=== PATIENT | male | born 1955 | race Caucasian/White ===

== ENCOUNTER 2023-09-14 11:20 | Emergency (ER) | payer MEDICARE, SELFPAY ==
[2023-09-14] VITALS (31 sets, daily range): BP systolic 49–174; BP diastolic 25–68; PULSE 48–84; RESP 18–21; TEMP 30.1–34.6; O2SAT 79–100; BMI 25.1
--- NOTE | 2023-09-14 | ECG_ITS ---
Test Reason : CARDIAC ARREST REPEAT Blood Pressure : / mmHG Vent. Rate : 067 BPM Atrial Rate : 067 BPM P-R Int : 192 ms QRS Dur : 102 ms QT Int : 478 ms P-R-T Axes : 066 044 082 degrees QTc Int : 505 ms Sinus rhythm with Premature atrial complexes Possible Left atrial enlargement Prolonged QT Abnormal ECG When compared with ECG of 14-SEP-2023 11:29, Poor data quality in previous ECG Referred By: Anjum Castillo Electronically Signed By:Arian Triana
--- NOTE | ~2023-09-14 | CT_ITS ---
EXAMINATION: CT CHEST, ABDOMEN AND PELVIS WITHOUT CONTRAST CLINICAL INFORMATION: Cardiac arrest. COMPARISON: None available. TECHNIQUE: Multidetector volumetric imaging was performed of the chest, abdomen and pelvis without intravenous contrast. Sagittal and coronal reformatted images were obtained on the technologist's workstation. This CT examination was performed using dose optimization techniques as appropriate, variously including the following: *Automated exposure control *Adjustment of mA and/or kV according to patient size (this includes techniques or standardized protocols for targeted exams where dose is matched to indication/reason for exam; i.e. extremities or head) *Use of iterative reconstruction technique DLP: 1684.37 mGy-cm FINDINGS: CHEST: LUNGS: Endotracheal tube tip terminates 5 cm above the vince. There is compressive atelectasis in the lower lobes. There is focal consolidation in the anteromedial/paramediastinal right upper lobe possibly representing a contusion. PLEURA: Moderate bilateral pleural effusions. No pneumothorax. MEDIASTINUM: Imaged thyroid gland is heterogeneous. No bulky mediastinal or hilar lymphadenopathy. Great vessels are of normal caliber. Heart is enlarged. No pericardial effusion. CORONARY ARTERY CALCIFICATION: Marked. CHEST WALL/AXILLA: No axillary or internal mammary lymphadenopathy. Gynecomastia. ABDOMEN AND PELVIS: ABDOMINAL AND PELVIC WALL: Unremarkable. LIVER AND BILIARY TREE: Unremarkable. GALLBLADDER: Distended. PANCREAS: No ductal dilatation. SPLEEN: Not enlarged. ADRENAL GLANDS: No adrenal mass. KIDNEYS AND URETERS: 6 mm midpole nonobstructing right renal calculus. No right hydrocele necrosis or hydroureter. Nonspecific right perinephric stranding. There is mild to moderate left hydroureteronephrosis to the level of the urinary bladder. No obstructing calculus is seen. Nonspecific left perinephric stranding. GASTROINTESTINAL TRACT: Enteric catheter terminates in the stomach. Copious stool throughout the colon. Appendix is within normal limits. No small bowel obstruction. VASCULAR: Marked atherosclerotic vascular calcification of the abdominal aorta and major branch vessels. LYMPH NODES: Nonspecific subcentimeter retroperitoneal and mesenteric lymph nodes. FREE FLUID: No free fluid. BLADDER: Decompressed by indwelling Edouard catheter. Perivesicular stranding. PELVIC VISCERA: Unremarkable. OSSEOUS STRUCTURES: Right first through fifth rib fractures. No destructive bone lesion. CT/CT abdomen pelvis wo IV con IMPRESSION: Right first through fifth rib fractures. Probable pulmonary contusion in the anteromedial/paramediastinal right upper lobe. Moderate bilateral pleural effusions with compressive atelectasis. Mild to moderate left hydroureteronephrosis to the level of the urinary bladder. No obstructing calculus is seen. Evaluation is limited without intravenous contrast. Consider CT urogram. Gallbladder hydrops. Advise correlation with right upper quadrant ultrasound.
--- NOTE | ~2023-09-14 | CT_ITS ---
EXAMINATION: CT HEAD WITHOUT CONTRAST CT CERVICAL SPINE WITHOUT CONTRAST CLINICAL INFORMATION: Cardiac arrest. Fall. Found down. COMPARISON: None. TECHNIQUE: Contiguous axial imaging was performed from the skullbase to vertex without intravenous administration of contrast. Multidetector helical imaging was performed through the cervical spine. This CT examination was performed using dose optimization techniques as appropriate, variously including the following: *Automated exposure control *Adjustment of mA and/or kV according to patient size (this includes techniques or standardized protocols for targeted exams where dose is matched to indication/reason for exam; i.e. extremities or head) *Use of iterative reconstruction technique DLP: 1330 mGy-cm. FINDINGS: HEAD: There is diffusely diminished santiago-white matter differentiation both cerebral hemispheres. Moderate generalized brain parenchymal volume loss noted with commensurate ex vacuo dilatation of the ventricles. Mild chronic white matter microangiopathy also noted. There is no evidence of acute intracranial hemorrhage. No abnormal mass effect or midline shift is seen. No extra-axial fluid collections are identified. The osseous structures and soft tissues are normal. The mastoid air cells are well aerated. Mild ethmoid sinus mucosal thickening noted. CERVICAL SPINE: Partially visualized fractures are seen in the first ribs bilaterally. There is moderate to severe degenerative disc disease with disc-osteophyte complexes at the C6-C7 and C7-T1 levels. Central disc protrusion mildly impresses upon the ventral thecal sac at the C5-C6 level. Heterogeneous attenuation of the thyroid gland noted without a discrete dominant lesion. The atlantoaxial articulation is normally maintained. The patient is intubated. [id number] atherosclerotic wall calcifications present at the carotid vasculature, worse on the left side with stenosis at the origin of the left internal carotid artery. The paraspinal soft tissues are normal. The lung apices are clear. CT/CT cervical spine wo IV con IMPRESSION: 1. Diffuse decreased brain parenchymal attenuation and loss of santiago-white matter differentiation, most indicative for global anoxic brain injury. 2. No evidence of acute cervical spine traumatic injury. Multilevel spondylosis, more significant at the C6-C7 and C7-T1 levels. 3. Bilateral first rib fractures. Imaging findings reported to Dr. Silva at 2:18 PM on 09/14/2023.
--- NOTE | 2023-09-14 11:38 | ECG_ITS ---
Test Reason : CARDIAC ARREST Blood Pressure : / mmHG Vent. Rate : 085 BPM Atrial Rate : 085 BPM P-R Int : 186 ms QRS Dur : 112 ms QT Int : 394 ms P-R-T Axes : 048 -41 055 degrees QTc Int : 468 ms Poor data quality Artifact Sinus rhythm No previous ECGs available Referred By: Cherie Silva Electronically Signed By:Arian Triana
--- NOTE | 2023-09-14 11:45 | ED.CPR ---
HPI - CPR General Chief Complaint: Cardiac Arrest/CPR Stated Complaint: CARDIAC ARREST PER EMS Source: EMS Mode of arrival: EMS Limitations: other (ongoing CPR) History of Present Illness HPI narrative: 68 yo male with PMH of HTN, aspiration pneumonia, DM BS in 100s with EMS, HLD, PVD s/p R TMA, he is on eliquis as well I am not sure why. Has new CKD from vancomycin and went on a new antibiotic Thursday. Sister notes she brought him home from [facility] in the afternoon and his urine was the color of tea. A thud was heard this AM and he was found by per EMS. He had about 10 minutes of downtime prior to prehospital CPR which was started by PD. ACLS transport arrived 15 min after collapse they report asystole on arrival and then PEA. He had 1 minute of ROSC but lost it. He had a amalia airway and 5+ epi. He had about 45+ min prehospital CPR sister called he has MRSA in R foot - Norberto [phone] his was rushed to [facility] because she is ill and the family did not know where he was MD complaint: collapsed during rest (was standing) Onset (ago): hour(s) (55+) Timing confirmed by: family member Place: home Bystander CPR performed: No AED applied by bystander/acreage reporter: Yes Shock advised: No Downtime before ACLS arrival (mins): 15 Initial findings in the field: unresponsive, no respirations, no pulse and other rhythm (asystole) ROSC in the field: Yes (1 min) Associated injuries: No Known history of: other (DM) Treatments prior to arrival: other airway device and epinephrine mgs # (5+) Related Data Allergies Allergy/AdvReac Type Severity Reaction Status Date / Time No Known Allergies Allergy Verified 09/14/23 11:38 Review of Systems Review of Systems: ROS unable to be obtained due to ongoing CPR [facility] Past Medical History Source: old records reviewed Medical History MRSA (methicillin resistant staph aureus) culture positive Diabetes HTN (hypertension) Social History Social History (Updated 09/14/23 @ 12:13 by Cherie Silva DO) Patient Tobacco Use Status: Tobacco use Unknown Advance Directives: No Physical Exam Vital Signs: Vital Signs: Last Vital Signs Temp 93.2 F L 09/14/23 15:11 Pulse 73 09/14/23 15:25 Resp 18 09/14/23 15:25 BP 123/58 L 09/14/23 15:25 Pulse Ox 100 09/14/23 15:25 O2 Del Method Mechanical Ventil ation 09/14/23 15:25 FiO2 100 09/14/23 15:25 BMI result Body Mass Index 25.1 Appearance: ongoing CPR, unresponsive, no response to any painful stimuli Eyes: Pupils unequal and not reactive R pupil 4mm irregular L pupil 3mm ENT: Pharynx normal. no vomit in airway Neck: Normal inspection. Neck supple. CVS: no pulses present on arrival - ongoing CPR with onel device Respiratory: no spontaneous respirations, diminished BS in both bases. Abdomen: Soft but distended Skin: Skin cold to touch. pale skin color. Extremities: R foot TMA incision is c/d/i no pulses felt in either foot with CPR, no signs of infection Neuro: no response to any stimuli at this time Course Course Course Narrative: cannot get a hold of no answer per [facility] Department Reevaluation(s) Reevaluation #1: still no neurologic signs at this time. Reevaluation #2: notes from [facility] admit to 09/12 on eliquis for afib has DM2, PAF, severe PAD s/p bilateral LE angio, left TMA 08/24, R TMA recent MRSA bacteremia was on 6 weeks course of vancomycin s/p discharge on 08/28 but presented on for elevated vanc and abnormal labs. Cr 2.1 baseline 0.9 to 1.0. They switched him to daptomycin. He was confused on arrival to the ED with urinary retention and straight cathed for 900cc urine. had normal retroperitoneal US no stones but mild hydro hemoglobin on DC 7.7, Cr 1.8 UA had > 182 WBC and moderate bacteria slight WBC clumps Reevaluation #3: pupils not reactive, no corneal reflex, not breathing over the vent, no response to pain now here will discuss findings and updates repeat lactic and VBG ordered 155pm long discussion with who states that she is so sad but is aware he was without O2 for 15 minutes and now she also notes there was no thud she just found him down. so the downtime is not known. She is aware he had an anoxic brain injury on CT scan. She states he is to be DNR at this time. She wants him to have his last rites. 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 Will wait for his sister and terminally extubate. sister aware and plan of care is to terminally extubate and is in agreement extubated 409pm no cough, no gag no respirations noted after removal of the vent Medications Administered Discontinued Medications Generic Name Dose Route Start Last Admin Trade Name Freq PRN Reason Stop Dose Admin Norepinephrine Bitartrate 8 mg in 250 mls @ 0 mls/hr 09/14/23 12:00 09/14/23 15:25 Levophed IV 0.1 mcg/kg/min .Q0M YE 16.16 mls/hr Titration Protocol Per Protocol Sodium Chloride 2,586 mls @ 2,586 mls/hr 09/14/23 11:53 09/14/23 13:13 Ns 30 ml/kg infuse over 1 hr (2586 ml) 09/14/23 12:52 Infused IV Infusion .Q1H STA Cefepime HCl 2 gm/ Sodium 50 mls @ 100 mls/hr 09/14/23 11:56 09/14/23 12:55 Chloride IV 09/14/23 12:25 Infused ONCE ONE Infusion Sodium Bicarbonate 100 meq/ 1,000 mls @ 50 mls/hr 09/14/23 12:15 09/14/23 15:12 Dextrose IV Infused .Q20H YE Infusion Medical Decision Making Medical Decision Making MDM Narrative: 68 yo male with PMH of HTN, aspiration pneumonia, DM BS in 100s with EMS, HLD, PVD s/p R TMA, he is on eliquis as well recent RICHARD currently on IV abx from R PICC line at this time he had ROSC on arrival here after about 55 minutes of prehospital CPR now with unequal pulses and no neurologic response. He has had ROSC here at this time will start temp directed care, empiric abx, request records from [facility] as he was just discharged from there yesterday. Given hypotension and acidosis I have started fluids along with cefepime until we get records from [facility], HCO3 drip as levo is not working, huff CT scan as well. Sister notes worsening kidney function so CTA PE held and he is on eliquis VTE unlikely no signs of unilateral swelling CT head ordered for possible ICH though he has been in arrest for 55 minutes at this time Differential Diagnosis Differential Diagnoses: The differential diagnosis associated with the presentation includes cardiac arrest, VTE unlikely given eliquis use, infection, lyte abnormality Admission/Observation Consideration of admission/observation: Escalation of care including admission/observation considered patient made SENIOR QUALITY CONTROL TECHNICIAN and extubated terminally in light of anoxic brain injury and lack of neurologic response at 4.5 hours with severe findings on CT scan and no pupillary response, corneal reflex, he is not breathing over the vent, family wished to make him SENIOR QUALITY CONTROL TECHNICIAN Lab Data MDM Lab Attestation statement: I reviewed the patient's lab results. 09/14/23 11:48 09/14/23 11:48 Labs: Lab Results 09/14/23 09/14/23 09/14/23 Range/Units 11:32 11:48 11:54 WBC 8.5 (4.8-10.8) X10*3/uL RBC 2.97 L (4.60-5.80) X10*6/uL Hgb 8.1 L (14.0-18.0) g/dl Hct 27.5 L (42.0-52.0) % MCV 92.6 (80.0-98.0) fL MCH 27.3 (27.0-33.0) pg MCHC 29.5 L (31.0-36.0) g/dl RDW 15.4 (11.0-16.0) % Plt Count 317 (160-400) X10*3/uL MPV 11.2 (9.4-12.4) fL Immature Gran % (Auto) 4.7 H (0.0-0.4) % Neut % (Auto) 53.5 (45-73) % Lymph % (Auto) 28.8 (20-40) % [place] % (Auto) 6.8 (2-11) % Eos % (Auto) 5.6 H (0-4) % Baso % (Auto) 0.6 (0-2) % Lymph # (Auto) 2.5 (1.2-4.9) X10*3/uL [place] # (Auto) 0.6 (0.1-1.2) X10*3/uL Eos # (Auto) 0.5 H (0.0-0.4) X10*3/uL Baso # (Auto) 0.1 (0.0-0.2) X10*3/uL Abs Immat Gran (auto) 0.40 H (0.00-0.03) X10*3/uL Absolute Neuts (auto) 4.6 (2.0-8.3) x10*3/uL Absolute Nucleated RBC 0.000 (0.0-0.012) X10*3/uL Nucleated RBC % (auto) 0.0 (0.0-0.2) /100WBC PT 21.3 H (11.1-13.3) SEC INR 1.8 H (0.9-1.1) VBG pH (7.32-7.43) VBG pCO2 mmHg VBG pO2 mmHg VBG HCO3 (22-26) mmol/L VBG O2 Saturation VBG Base Excess mmol/L Sodium 144 (135-145) mmol/L Potassium 5.1 (3.3-5.1) mmol/L Chloride 110 H (96-108) mmol/L Carbon Dioxide 16 L (22-29) mmol/L Anion Gap 23 H (12-20) BUN 34 H (9-16) mg/dL Creatinine 2.63 H (0.5-1.4) mg/dL Estim Creat Clear Calc TNP Estimated GFR 24 POC Glucose 103 (60-115) mg/dL Random Glucose 86 (60-115) mg/dL Lactic Acid 12.4 H* (0.5-2.0) mmol/L Lactic Acid F/U @ 2Hr (0.5-2.0) mmol/L Calcium 9.1 (8.4-10.2) mg/dL Magnesium 2.9 H (1.6-2.6) mg/dL Total Bilirubin 0.3 (0.0-1.0) mg/dL Direct Bilirubin 0.2 (0.0-0.5) mg/dL AST 2073 H (5-37) U/L ALT 965 H (0-40) U/L Alkaline Phosphatase 65 (39-117) U/L Ammonia 199 H (13-55) umol/L Total Creatine Kinase 135 (38-174) U/L Troponin I High Sens 11.9 (<3.5-35.0) ng/L B-Natriuretic Peptide 236 H (<100) pg/mL Total Protein 7.0 (6.5-8.0) g/dL Albumin 3.3 L (3.5-5.0) g/dL Lipase 19 (8-78) U/L Procalcitonin 0.08 ng/mL Urine Color Dark Yellow Urine Appearance Turbid Urine pH 6.0 (5.0-9.0) Ur Specific [place] 1.015 (1.005-1.025) Urine Protein 300 (3+) H (Neg-Trace) mg/dL Urine Glucose (UA) Negative (Negative) mg/dL Urine Ketones Negative (Negative) mg/dL Urine Blood Large (3+) H (Negative) Urine Nitrite Negative (Negative) Ur Leukocyte Esterase Large (3+) H (Negative) Urine RBC 6-10 H (0-2) /HPF Urine WBC >50 H (0-5) /HPF Ur Squamous Epith Cells 6-10 (0-2) /HPF Urine Bacteria Trace (None Seen) Hyaline Casts 3-5 (0-2) /LPF Urine Yeast Present Urine Opiates Screen POSITIVE H (Not Detect) Urine Fentanyl Screen Not Detected (Not Detect) Ur Barbiturates Screen Not Detected (Not Detect) Ur Phencyclidine Scrn Not Detected (Not Detect) Ur Amphetamines Screen Not Detected (Not Detect) U Benzodiazepines Scrn Not Detected (Not Detect) Urine Cocaine Screen Not Detected (Not Detect) U Marijuana (THC) Screen Not Detected (Not Detect) Ethyl Alcohol < 10 mg/dL Influenza Type A (PCR) NEGATIVE (Negative) Influenza Type B (PCR) NEGATIVE (Negative) RSV RNA Qual (PCR) NEGATIVE (Negative) SARS-CoV-2 RNA (RT-PCR) NEGATIVE (Negative) Blood Type B Positive Antibody Screen NEGATIVE 09/14/23 09/14/23 09/14/23 Range/Units 11:55 14:00 14:05 WBC (4.8-10.8) X10*3/uL RBC (4.60-5.80) X10*6/uL Hgb (14.0-18.0) g/dl Hct (42.0-52.0) % MCV (80.0-98.0) fL MCH (27.0-33.0) pg MCHC (31.0-36.0) g/dl RDW (11.0-16.0) % Plt Count (160-400) X10*3/uL MPV (9.4-12.4) fL Immature Gran % (Auto) (0.0-0.4) % Neut % (Auto) (45-73) % Lymph % (Auto) (20-40) % [place] % (Auto) (2-11) % Eos % (Auto) (0-4) % Baso % (Auto) (0-2) % Lymph # (Auto) (1.2-4.9) X10*3/uL [place] # (Auto) (0.1-1.2) X10*3/uL Eos # (Auto) (0.0-0.4) X10*3/uL Baso # (Auto) (0.0-0.2) X10*3/uL Abs Immat Gran (auto) (0.00-0.03) X10*3/uL Absolute Neuts (auto) (2.0-8.3) x10*3/uL Absolute Nucleated RBC (0.0-0.012) X10*3/uL Nucleated RBC % (auto) (0.0-0.2) /100WBC PT (11.1-13.3) SEC INR (0.9-1.1) VBG pH 6.99 L* 7.29 L (7.32-7.43) VBG pCO2 57 31 mmHg VBG pO2 102 204 mmHg VBG HCO3 14 L 15 L (22-26) mmol/L VBG O2 Saturation TNP 100.0 VBG Base Excess -16.6 -9.7 mmol/L Sodium (135-145) mmol/L Potassium (3.3-5.1) mmol/L Chloride (96-108) mmol/L Carbon Dioxide (22-29) mmol/L Anion Gap (12-20) BUN (9-16) mg/dL Creatinine (0.5-1.4) mg/dL Estim Creat Clear Calc Estimated GFR POC Glucose (60-115) mg/dL Random Glucose (60-115) mg/dL Lactic Acid (0.5-2.0) mmol/L Lactic Acid F/U @ 2Hr 6.4 H* (0.5-2.0) mmol/L Calcium (8.4-10.2) mg/dL Magnesium (1.6-2.6) mg/dL Total Bilirubin (0.0-1.0) mg/dL Direct Bilirubin (0.0-0.5) mg/dL AST (5-37) U/L ALT (0-40) U/L Alkaline Phosphatase (39-117) U/L Ammonia (13-55) umol/L Total Creatine Kinase (38-174) U/L Troponin I High Sens (<3.5-35.0) ng/L B-Natriuretic Peptide (<100) pg/mL Total Protein (6.5-8.0) g/dL Albumin (3.5-5.0) g/dL Lipase (8-78) U/L Procalcitonin ng/mL Urine Color Urine Appearance Urine pH (5.0-9.0) Ur Specific [place] (1.005-1.025) Urine Protein (Neg-Trace) mg/dL Urine Glucose (UA) (Negative) mg/dL Urine Ketones (Negative) mg/dL Urine Blood (Negative) Urine Nitrite (Negative) Ur Leukocyte Esterase (Negative) Urine RBC (0-2) /HPF Urine WBC (0-5) /HPF Ur Squamous Epith Cells (0-2) /HPF Urine Bacteria (None Seen) Hyaline Casts (0-2) /LPF Urine Yeast Urine Opiates Screen (Not Detect) Urine Fentanyl Screen (Not Detect) Ur Barbiturates Screen (Not Detect) Ur Phencyclidine Scrn (Not Detect) Ur Amphetamines Screen (Not Detect) U Benzodiazepines Scrn (Not Detect) Urine Cocaine Screen (Not Detect) U Marijuana (THC) Screen (Not Detect) Ethyl Alcohol mg/dL Influenza Type A (PCR) (Negative) Influenza Type B (PCR) (Negative) RSV RNA Qual (PCR) (Negative) SARS-CoV-2 RNA (RT-PCR) (Negative) Blood Type Antibody Screen Independent Interpretation I performed an independent interpretation of an: EKG and CT Scan (global anoxic brain injury) Interpretation: Rate: 67 Rhythm: NSR with PACs [place]: normal Normal P waves. Normal JAN. Normal QRS complex. ST T wave : no DAMON, inverted t wave aVL and V1 qTC: 505 prior studies: no priors The study has been interpreted contemporaneously by me. . Radiology Impression Discussion of test interpretation with radiology: I discussed test interpretation with the radiologist and I have reviewed the radiologist's reading. Independent Historian Clinical information obtained from an independent historian. History obtained from or confirmed by: EMS and Other (sister) External Record Review External record reviewed: Outpatient record Procedures FAST Exam FAST Exam 1: Fluid in Morison's pouch: No Fluid in Splenorenal [place]unction: No Fluid around bladder, Transverse view: No Fluid around bladder, Sagittal view: No Fluid in Pericardial Sac: No Study normal for this patient: Yes Intubation Intubation Type:: Endotracheal Tube Insertion Time out performed: Yes sedative: none Laryngoscope: fiber optic video scope ET Tube Size: 7.5 ET Tube Uncuffed: Yes Tube Secured Depth (cm): 23 Tube Secured Location: teeth Tube Placement Confirmation: visualized tube passing through cords, equal breath sounds bilaterally, no breath sounds over epigastrium and confirmation by capnometry Patient Tolerated Procedure: well and no complications Intubation Complications: none Critical Care Time Critical Care Time Critical Care Time: Yes Total Critical Care Time: 90 Attestation: review of records, family discussion, end of life care, resuscitation I attest to this time spent taking care of the patient Discharge Plan Discharge Clinical Impression: Cardiac arrest, Metabolic acidosis, Acute kidney injury superimposed on chronic kidney disease, Elevated liver function tests, Anoxic brain injury Patient Disposition: Still a Patient
[2023-09-14 11:53] LABS: MANUAL DIFF FLAG NO
[2023-09-14 11:55] LABS: Venous Blood Gas Refer to POC result
[2023-09-14] MEDS: Norepinephrine Bitartrate/D5W 8 MG/250 ML PLAST..BAG 8.08 MG IV (11:59)
[2023-09-14] MEDS: 0.9 % Sodium Chloride 2,586 ML 2586 ML IV (12:03)
[2023-09-14 12:04] LABS: VBG Base Excess -16.6 mmol/L; VBG HCO3 14 mmol/L (22-26); VBG pCO2 57 mmHg; VBG pH 6.99 (7.32-7.43); VBG pO2 102 mmHg
[2023-09-14 12:04] LABS: INTERNATIONAL NORM RATIO 1.8 (0.9-1.1); Prothrombin Time 21.3 SEC (11.1-13.3)
[2023-09-14 12:05] LABS: Basophils Absolute Auto 0.1 X10*3/uL (0.0-0.2); Basophils Percent Auto 0.6 % (0-2); Eosinophils Absolute Auto 0.5 X10*3/uL (0.0-0.4); Eosinophils Percent Auto 5.6 % (0-4); Hematocrit 27.5 % (42.0-52.0); Hemoglobin 8.1 g/dl (14.0-18.0); Imm Gran Pct Auto 4.7 % (0.0-0.4); Lymphocytes Absolute Auto 2.5 X10*3/uL (1.2-4.9); Lymphocytes Percent Auto 28.8 % (20-40); Mean Corpuscular HGB Conc 29.5 g/dl (31.0-36.0); Mean Corpuscular Hemoglobin 27.3 pg (27.0-33.0); Mean Corpuscular Volume 92.6 fL (80.0-98.0); Mean Platelet Volume 11.2 fL (9.4-12.4); Monocytes Absolute Auto 0.6 X10*3/uL (0.1-1.2); Monocytes Percent Auto 6.8 % (2-11); Neutrophils Absolute Auto 4.6 x10*3/uL (2.0-8.3); Neutrophils Percent Auto 53.5 % (45-73); Platelet Count 317 X10*3/uL (160-400); Red Blood Count 2.97 X10*6/uL (4.60-5.80); Red Cell Distribution Width 15.4 % (11.0-16.0); White Blood Count 8.5 X10*3/uL (4.8-10.8)
[2023-09-14 12:06] LABS: Glucose, Whole Blood 103 mg/dL (60-115)
[2023-09-14 12:07] LABS: Ammonia 199 umol/L (13-55)
[2023-09-14 12:15] LABS: Lactic Acid 12.4 mmol/L (0.5-2.0)
[2023-09-14 12:18] LABS: Amphetamine Screen Urine Not Detected (Not Detect); Barbiturates, Urine Not Detected (Not Detect); Benzodiazepines Screen Urine Not Detected (Not Detect); Cannabinoid Screen Urine Not Detected (Not Detect); Cocaine Screen Urine Not Detected (Not Detect); Fentanyl, urine Not Detected (Not Detect); Opiate Screen Urine POSITIVE (Not Detect); Phencyclidine Screen Urine Not Detected (Not Detect)
[2023-09-14 12:21] LABS: B Type Natriuretic Peptide 236 pg/mL (<100)
[2023-09-14 12:23] LABS: Troponin-I High Sensitivity 11.9 ng/L (<3.5-35.0)
[2023-09-14] MEDS: cefEPime HCl 2 GM in 0.9 % Sodium Chloride 50 ML IV (12:25)
[2023-09-14 12:27] LABS: Albumin Level 3.3 g/dL (3.5-5.0); Anion Gap 23 (12-20); Bilirubin Direct 0.2 mg/dL (0.0-0.5); Bilirubin Total 0.3 mg/dL (0.0-1.0); Blood Urea Nitrogen 34 mg/dL (9-16); Calcium 9.1 mg/dL (8.4-10.2); Carbon Dioxide 16 mmol/L (22-29); Chloride 110 mmol/L (96-108); Estimated Glomerular Filt Rate 24; Ethanol < 10 mg/dL; Glucose Random 86 mg/dL (60-115); Lipase 19 U/L (8-78); Magnesium 2.9 mg/dL (1.6-2.6); Potassium 5.1 mmol/L (3.3-5.1); Sodium 144 mmol/L (135-145)
[2023-09-14 12:32] LABS: Alanine Aminotransferase 965 U/L (0-40); Alkaline Phosphatase 65 U/L (39-117)
[2023-09-14 12:34] LABS: Influenza A PCR NEGATIVE (Negative); Influenza B PCR NEGATIVE (Negative); Resp Syncy Virus RNA Qual PCR NEGATIVE (Negative); SARS COV2 PCR INHOUSE NEGATIVE (Negative)
[2023-09-14] MEDS: Sodium Bicarbonate 8.4% 100 MEQ in Dextrose 5 % 900 ML 50 MEQ IV (12:34)
[2023-09-14 12:45] LABS: Appearance Urine Turbid; Glucose Urine UA Negative (Negative); Leukocyte Esterase Urine Large (3+) (Negative); Nitrite Urine Negative (Negative); Specific Gravity - Urine 1.015 (1.005-1.025); UMIC TRIGGER UACC YES; Urine Blood Large (3+) (Negative); Urine Ketones Negative (Negative); Urine Protein 300 (3+) mg/dL (Neg-Trace)
[2023-09-14 12:47] LABS: Bacteria Urine Trace (None Seen); Color Urine Dark Yellow; UACC Culture Trigger YES; WBC Urine >50 /HPF (0-5)
[2023-09-14 12:52] LABS: Aspartate Amino Transferase 2073 U/L (5-37); Procalcitonin 0.08 ng/mL
--- NOTE | 2023-09-14 13:41 | PC.NURSE ---
Right shoulder IO removed. DSD applied.
[2023-09-14 13:52] LABS: Reflex Lactate? Lactic Acid Added
--- NOTE | 2023-09-14 14:11 | PC.NURSE ---
and family friend at the bedside at this time.
[2023-09-14 14:13] LABS: VBG Base Excess -9.7 mmol/L; VBG HCO3 15 mmol/L (22-26); VBG pCO2 31 mmHg; VBG pH 7.29 (7.32-7.43); VBG pO2 204 mmHg
[2023-09-14 14:16] LABS: Venous Blood Gas Refer to POC result
[2023-09-14 14:24] LABS: ~Lactic Acid-LAB USE ONLY 6.4 mmol/L (0.5-2.0)
--- NOTE | 2023-09-14 14:25 | PC.NURSE ---
Pastor Farah at the bedside at this time per family request.
--- NOTE | 2023-09-14 14:41 | PC.NURSE ---
Per pastor Farah, corner bead operator will be here in 12 minutes.
--- NOTE | 2023-09-14 14:58 | PC.NURSE ---
File Keeper at bedside to adminster last rites.
[2023-09-14 15:29] LABS: Cancel Lactic Acid Canceled
[2023-09-14] MEDS: Morphine Sulfate/NS 100 MG/100 ML PLAST..BAG IVCONT (16:17)
--- NOTE | 2023-09-14 16:33 | PC.NURSE ---
Took over care from GIANNA Marie pt extubated, repositioned for comfort and morphine p 3 armament/ordnance ima technician pump ordered
--- NOTE | 2023-09-14 17:26 | MHC.EDTECH ---
film examiner contacted @[phone] per 's request. Demographic information given then took call.
--- NOTE | 2023-09-14 17:45 | PC.NURSE ---
provider into pronounce time of , morphine arranger assembler wasted, family notified, organ bank called and pt was declined spoke to pedro at 17:24pm reference number [id number]
== END 2023-09-14 19:52 | disposition expired ==
PROVIDERS: Emergency Medicine; Emergency Provider Emergency Medicine Emergency Medical Services
DX: I46.9 Cardiac arrest, cause unspecified (principal); G93.1 Anoxic brain damage, not elsewhere classified; I95.9 Hypotension, unspecified; E87.20 Acidosis, unspecified; E11.22 Type 2 diabetes mellitus with diabetic chronic kidney disease; I12.9 Hypertensive chronic kidney disease with stage 1 through stage 4 chronic kidney disease, or unspecified chronic kidney disease; N18.9 Chronic kidney disease, unspecified; N17.9 Acute kidney failure, unspecified; R79.89 Other specified abnormal findings of blood chemistry; Z11.52 Encounter for screening for COVID-19; Z20.828 Contact with and (suspected) exposure to other viral communicable diseases; E78.5 Hyperlipidemia, unspecified; I48.0 Paroxysmal atrial fibrillation; Z86.14 Personal history of Methicillin resistant Staphylococcus aureus infection; Z87.01 Personal history of pneumonia (recurrent); Z79.01 Long term (current) use of anticoagulants; Z79.899 Other long term (current) drug therapy; Z66 Do not resuscitate
CPT/HCPCS: 0241U; 31500; 36415; 51702; 70450; 71250; 72125; 74176; 80048; 80076; 80307; 81001; 81003; 82140; 82550; 82803; 82947; 83605; 83690; 83735; 83880; 84145; 84484; 85025; 85610; 86850; 86900; 86901; 87040; 87086; 87088; 93005; 94002; 96361; 96365; 96366; 96367; 96368; 99285; J0171; J0692; J2270

== ENCOUNTER → 2023-09-14 11:38 | Outpatient (BNV) | payer SELFPAY | PROVIDERS: Emergency Provider Emergency Medicine Emergency Medical Services; Visit Provider Internal Medicine Cardiovascular Disease | DX: R94.31 Abnormal electrocardiogram [ECG] [EKG] (principal) | CPT/HCPCS: 93010 ==